=== PATIENT | male | born 1995 | race Caucasian/White ===

== ENCOUNTER 2020-01-14 17:30 | Emergency (ER) | payer SELFPAY ==
[~2020-01-14] VITALS: Ht 167.6 cm; Wt 78.5 kg
[2020-01-14 17:42] VITALS: BP 136/78; Ht 167.6 cm; Wt 78.5 kg
== END 2020-01-14 18:19 | disposition home or self-care (01) ==
LOC: ED 17:30
DX: F41.9 Anxiety disorder, unspecified (principal)
CPT/HCPCS: J2060